=== PATIENT | female | born 1980 | race Caucasian/White ===

== ENCOUNTER 2017-06-18 18:12 | Emergency (ER) | payer OTHER ==
[2017-06-18] MEDS ORDERED: SODIUM CHLORIDE 0.9% 1,000 ML IV STA (18:23)
[2017-06-18] MEDS ORDERED: KETOROLAC 30 MG/ML 1 ML VIAL IVP STA (18:23)
[2017-06-18] MEDS ORDERED: ONDANSETRON 4 MG/2 ML VIAL IVP STA (18:23)
[2017-06-18] MEDS ORDERED: MORPHINE SULFATE 4 MG/ML SYRINGE IV STA (18:23)
--- NOTE | 2017-06-18 18:36 | ED ---
Abdominal Pain HPI - General Chief Complaint: Abdominal Pain Stated Complaint: pelvic pain Time Seen by Provider: 06/18/17 18:19 Source: patient, RN notes reviewed, old records reviewed Mode of arrival: wheelchair Limitations: no limitations - History of Present Illness Initial Comments: this is a 36-year-old female presenting to the emergency Department chief complaint of severe right-sided pelvic pain. Patient reports that he feels like her ovary burst. Patient states that she hasn't having severe pain whenever she is obviously related over the past year however the past 60 she's been having some more frequent pain. 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 She reports that she felt a sudden tearing sensation, and the pain is having her doubled over. Patient states that she's had no urinary symptoms including dysuria or hematuria. Denies any vaginal discharge. She reports that she's had female. Patient reports that she has an IUD, which she needs to be changed in 2019. Patient states that she has had severe nausea due to the pain. She is on multiple pain medications due to poor lumbar spine, she takes Soma, oxycodone, and Neurontin. Patient reports that all these pain medications are not helping with the pain that she has. - Related Data Home Medications Medication Instructions Recorded Confirmed Carisoprodol [Soma] 350 mg PO Q8H 06/18/17 06/18/17 HYDROcodone/APAP 7.5-325MG [Vendor 1 tab PO Q6H PRN 06/18/17 06/18/17 7.5-325] Naproxen 500 mg PO Q12H 06/18/17 06/18/17 PARoxetine [Paxil] 20 mg PO DAILY 06/18/17 06/18/17 Allergies Allergy/AdvReac Type Severity Reaction Status Date / Time No Known Allergies Allergy Verified 06/18/17 18:38 Review of Systems ROS Statement: Those systems with pertinent positive or pertinent negative responses have been documented in the HPI. ROS Other: All systems not noted in ROS Statement are negative. Past Medical History Past Medical History: No Reported History Additional Past Medical History / Comment(s): neck and back pain History of Any Multi-Drug Resistant Organisms: None Reported Past Surgical History: Breast Surgery Past Psychological History: Anxiety Smoking Status: Current every day smoker Past Alcohol Use History: Occasional Past Drug Use History: None Reported General Exam - General Exam Comments Initial Comments: this is a ill-appearing 36-year-old female. Patient appears in significant discomfort. Limitations: no limitations General appearance: alert, in no apparent distress Head exam: Present: atraumatic, normocephalic, normal inspection Eye exam: Present: normal appearance, PERRL, EOMI. Absent: scleral icterus, conjunctival injection, periorbital swelling ENT exam: Present: normal exam, mucous membranes moist Neck exam: Present: normal inspection. Absent: tenderness, meningismus, lymphadenopathy Respiratory exam: Present: normal lung sounds bilaterally. Absent: respiratory distress, wheezes, rales, rhonchi, stridor Cardiovascular Exam: Present: regular rate, normal rhythm, normal heart sounds. Absent: systolic murmur, diastolic murmur, rubs, gallop, clicks GI/Abdominal exam: Present: soft, tenderness (suprapubic and RLQ pain), normal bowel sounds. Absent: distended, guarding, rebound, rigid External exam: Present: normal external exam Speculum exam: Present: vaginal discharge (scant vaginal discharge. ), cervical discharge. Absent: normal speculum exam, vaginal bleeding, foreign body, tissue By manual exam: Present: cervical motion tenderness (patient had some mild cervical motion tenderness.). Absent: normal by manual exam Extremities exam: Present: normal inspection, full ROM, normal capillary refill. Absent: tenderness, pedal edema, joint swelling, calf tenderness Back exam: Present: normal inspection, full ROM Neurological exam: Present: alert, oriented X3, CN II-XII intact Psychiatric exam: Present: normal affect, normal mood Skin exam: Present: warm, dry, intact, normal color. Absent: rash Course Vital Signs 06/18/17 18:18 Temperature 98.9 F Pulse Rate 118 H Respiratory 20 Rate Blood Pressure 156/100 O2 Sat by Pulse 98 Oximetry Medical Decision Making - Medical Decision Making physical 36-year-old female chief complaint of severe right-sided abdominal pain. Patient reports it seems to be lower and pelvic in nature. Patient labwork was reviewed. No significant abnormalities. Negative urinalysis. Transvaginal ultrasound obtained. Evidence of left-sided hemorrhagic ovarian cyst, as well as right-sided ovarian cyst which is a possible endometrioma. This relates to patient's pain. She states that every time when she is ovulating she's been having a severe increased pain throughout her abdomen. Patient is informed of what endometriosis is, and her symptoms are similar to this. Discussed that her acute pain seems to relate she will the ruptured cyst. Patient is alert he on oxycodone, Soma, and naproxen for pain. Discussed that I will not write her for any further pain medication. Patient was given morphine and IV fluids in the emergency department and is reevaluated feeling much better. Patient will be discharged at this time with close follow- up with her [facility]. Also vaginal cultures were obtained, no concern for PID at this time. - Lab Data Result diagrams: 06/18/17 18:45 06/18/17 18:45 Lab Results 06/18/17 06/18/17 06/18/17 Range/Units 18:35 18:35 18:45 WBC (3.8-10.6) k/uL RBC (3.80-5.40) m/uL Hgb (11.4-16.0) gm/dL Hct (34.0-46.0) % MCV (80.0-100.0) fL MCH (25.0-35.0) pg MCHC (31.0-37.0) g/dL RDW (11.5-15.5) % Plt Count (150-450) k/uL Neutrophils % % Lymphocytes % % Monocytes % % Eosinophils % % Basophils % % Neutrophils # (1.3-7.7) k/uL Lymphocytes # (1.0-4.8) k/uL Monocytes # (0-1.0) k/uL Eosinophils # (0-0.7) k/uL Basophils # (0-0.2) k/uL PT (9.0-12.0) sec INR (<1.2) APTT (22.0-30.0) sec Sodium 135 L (137-145) mmol/L Potassium 4.5 (3.5-5.1) mmol/L Chloride 105 (98-107) mmol/L Carbon Dioxide 20 L (22-30) mmol/L Anion Gap 10 mmol/L BUN 16 (7-17) mg/dL Creatinine 0.70 (0.52-1.04) mg/dL Est GFR (MDRD) Af Amer >60 (>60 ml/min/1.73 sqM) Est GFR (MDRD) Non-Af >60 (>60 ml/min/1.73 sqM) Glucose 116 H (74-99) mg/dL Plasma Lactic Acid Tyron (0.7-2.0) mmol/L Calcium 9.7 (8.4-10.2) mg/dL Total Bilirubin 0.4 (0.2-1.3) mg/dL AST 19 (14-36) U/L ALT 29 (9-52) U/L Alkaline Phosphatase 61 (38-126) U/L Total Protein 7.3 (6.3-8.2) g/dL Albumin 4.6 (3.5-5.0) g/dL Amylase 81 (30-110) U/L Lipase 264 (23-300) U/L HCG, Qual Not Detected Urine Color Yellow Urine Appearance Clear (Clear) Urine pH 5.5 (5.0-8.0) Ur Specific [place] 1.020 (1.001-1.035) Urine Protein Trace H (Negative) Urine Glucose (UA) Negative (Negative) Urine Ketones Negative (Negative) Urine Blood Negative (Negative) Urine Nitrite Negative (Negative) Urine Bilirubin Negative (Negative) Urine Urobilinogen <2.0 (<2.0) mg/dL Ur Leukocyte Esterase Negative (Negative) Urine HCG, Qual Not Detected (Not Detectd) Trichomonas Ag (Rapid) (Negative) 06/18/17 06/18/17 06/18/17 Range/Units 18:45 18:45 18:45 WBC 13.5 H (3.8-10.6) k/uL RBC 4.49 (3.80-5.40) m/uL Hgb 14.4 (11.4-16.0) gm/dL Hct 41.7 (34.0-46.0) % MCV 92.9 (80.0-100.0) fL MCH 32.0 (25.0-35.0) pg MCHC 34.5 (31.0-37.0) g/dL RDW 13.6 (11.5-15.5) % Plt Count 311 (150-450) k/uL Neutrophils % 63 % Lymphocytes % 28 % Monocytes % 4 % Eosinophils % 2 % Basophils % 1 % Neutrophils # 8.6 H (1.3-7.7) k/uL Lymphocytes # 3.7 (1.0-4.8) k/uL Monocytes # 0.6 (0-1.0) k/uL Eosinophils # 0.3 (0-0.7) k/uL Basophils # 0.1 (0-0.2) k/uL PT 9.9 (9.0-12.0) sec INR 1.0 (<1.2) APTT 23.1 (22.0-30.0) sec Sodium (137-145) mmol/L Potassium (3.5-5.1) mmol/L Chloride (98-107) mmol/L Carbon Dioxide (22-30) mmol/L Anion Gap mmol/L BUN (7-17) mg/dL Creatinine (0.52-1.04) mg/dL Est GFR (MDRD) Af Amer (>60 ml/min/1.73 sqM) Est GFR (MDRD) Non-Af (>60 ml/min/1.73 sqM) Glucose (74-99) mg/dL Plasma Lactic Acid Tyron 0.9 (0.7-2.0) mmol/L Calcium (8.4-10.2) mg/dL Total Bilirubin (0.2-1.3) mg/dL AST (14-36) U/L ALT (9-52) U/L Alkaline Phosphatase (38-126) U/L Total Protein (6.3-8.2) g/dL Albumin (3.5-5.0) g/dL Amylase (30-110) U/L Lipase (23-300) U/L HCG, Qual Urine Color Urine Appearance (Clear) Urine pH (5.0-8.0) Ur Specific [place] (1.001-1.035) Urine Protein (Negative) Urine Glucose (UA) (Negative) Urine Ketones (Negative) Urine Blood (Negative) Urine Nitrite (Negative) Urine Bilirubin (Negative) Urine Urobilinogen (<2.0) mg/dL Ur Leukocyte Esterase (Negative) Urine HCG, Qual (Not Detectd) Trichomonas Ag (Rapid) (Negative) 06/18/17 Range/Units 19:00 WBC (3.8-10.6) k/uL RBC (3.80-5.40) m/uL Hgb (11.4-16.0) gm/dL Hct (34.0-46.0) % MCV (80.0-100.0) fL MCH (25.0-35.0) pg MCHC (31.0-37.0) g/dL RDW (11.5-15.5) % Plt Count (150-450) k/uL Neutrophils % % Lymphocytes % % Monocytes % % Eosinophils % % Basophils % % Neutrophils # (1.3-7.7) k/uL Lymphocytes # (1.0-4.8) k/uL Monocytes # (0-1.0) k/uL Eosinophils # (0-0.7) k/uL Basophils # (0-0.2) k/uL PT (9.0-12.0) sec INR (<1.2) APTT (22.0-30.0) sec Sodium (137-145) mmol/L Potassium (3.5-5.1) mmol/L Chloride (98-107) mmol/L Carbon Dioxide (22-30) mmol/L Anion Gap mmol/L BUN (7-17) mg/dL Creatinine (0.52-1.04) mg/dL Est GFR (MDRD) Af Amer (>60 ml/min/1.73 sqM) Est GFR (MDRD) Non-Af (>60 ml/min/1.73 sqM) Glucose (74-99) mg/dL Plasma Lactic Acid Tyron (0.7-2.0) mmol/L Calcium (8.4-10.2) mg/dL Total Bilirubin (0.2-1.3) mg/dL AST (14-36) U/L ALT (9-52) U/L Alkaline Phosphatase (38-126) U/L Total Protein (6.3-8.2) g/dL Albumin (3.5-5.0) g/dL Amylase (30-110) U/L Lipase (23-300) U/L HCG, Qual Urine Color Urine Appearance (Clear) Urine pH (5.0-8.0) Ur Specific [place] (1.001-1.035) Urine Protein (Negative) Urine Glucose (UA) (Negative) Urine Ketones (Negative) Urine Blood (Negative) Urine Nitrite (Negative) Urine Bilirubin (Negative) Urine Urobilinogen (<2.0) mg/dL Ur Leukocyte Esterase (Negative) Urine HCG, Qual (Not Detectd) Trichomonas Ag (Rapid) Negative (Negative) - Radiology Data Radiology results: report reviewed Treatment plan 1 cm hemorrhagic left ovarian cyst with small amount of Ovarian fluid. Questionable 2.6 cm ovarian follicle within the right ovary which could relate to an endometrioma the patient's history. No current evidence of ovarian torsion on exam. Appropriately placed IUD. Essentially within the endometrium sparing the fundus and body. Disposition Clinical Impression: Left ovarian cyst, Right ovarian cyst, Endometriosis, Ruptured ovarian cyst Disposition: HOME SELF-CARE Condition: Good Instructions: Endometriosis (ED), Ovarian Cyst (ED) Additional Instructions: Patient advised to follow-up with her [facility]. Return to the emergency department if any alarming signs or symptoms occur. Referrals: Yunior Celaya MD [Primary Care Provider] - 1-2 days Time of Disposition: 20:03
[2017-06-18 18:47] LABS: Appearance,Urine Clear (Clear); Bilirubin,Urine Negative (Negative); Glucose,Urine (UA) Negative (Negative); Ketones,Urine Negative (Negative); Leukocyte Esterase,Urine Negative (Negative); Nitrite,Urine Negative (Negative); PH, Urine 5.5 (5.0-8.0); Protein,Urine Trace (Negative); UA Billing (MACRO vs. MICRO) CHEM; Urobilinogen,Urine <2.0 mg/dL (<2.0)
[2017-06-18 19:05] LABS: Basophils # (A) 0.1 k/uL (0-0.2); Basophils % (A) 1 %; CH 31.5; CHCM 34.1; Eosinophils # (A) 0.3 k/uL (0-0.7); Eosinophils % (A) 2 %; HCT 41.7 % (34.0-46.0); HDW 2.17; HGB 14.4 gm/dL (11.4-16.0); Luc # (Auto) 0.31; Luc % (Auto) 2; Lymphocytes # (A) 3.7 k/uL (1.0-4.8); Lymphocytes % (A) 28 %; MCHC 34.5 g/dL (31.0-37.0); MCV 92.9 fL (80.0-100.0); Mean Platelet Volume 7.1; Monocytes # (A) 0.6 k/uL (0-1.0); Monocytes % (A) 4 %; Neutrophils # (A) 8.6 k/uL (1.3-7.7); Neutrophils % (A) 63 %; RBC 4.49 m/uL (3.80-5.40); RDW 13.6 % (11.5-15.5); WBC 13.5 k/uL (3.8-10.6); WBC (Perox) 13.62
[2017-06-18 19:13] LABS: ALT 29 U/L (9-52); AST 19 U/L (14-36); Alkaline Phosphatase 61 U/L (38-126); Amylase 81 U/L (30-110); Anion Gap 10 mmol/L; Blood Urea Nitrogen 16 mg/dL (7-17); Calcium 9.7 mg/dL (8.4-10.2); Carbon Dioxide 20 mmol/L (22-30); Chloride 105 mmol/L (98-107); Glucose 116 mg/dL (74-99); Non-African American GFR(MDRD) >60 (>60 ml/min/1.73 sqM); Potassium 4.5 mmol/L (3.5-5.1); Sodium 135 mmol/L (137-145); Total Bilirubin 0.4 mg/dL (0.2-1.3); Total Protein 7.3 g/dL (6.3-8.2)
[2017-06-18 19:29] LABS: HCG,Qualitative Serum Not Detected
[2017-06-18 19:37] LABS: Partial Thromboplastin Time 23.1 sec (22.0-30.0); Prothrombin Time 9.9 sec (9.0-12.0)
--- NOTE | 2017-06-18 19:40 | US ---
EXAMINATION TYPE: US transvaginal DATE OF EXAM: 06/18/2017 COMPARISON: NONE CLINICAL HISTORY: Pain. Right pelvic pain, endometriosis, severe pain with ovulation, IUD placement TECHNIQUE: Transvaginal (TV) Date of LMP: 2 weeks ago EXAM MEASUREMENTS: Uterus: 8.3 x 4.8 x 5.9 cm Endometrial Stripe: 0.9 cm Right Ovary: 3.5 x 2.3 x 1.7 cm Left Ovary: 4.8 x 2.8 x 3.2 cm 1. Uterus: Anteverted 2. Endometrium: IUD visualized within body/fundus 3. Right Ovary: possible isoechoic area = 2.6 x 1.5 x 1.3cm 4. Left Ovary: complex cystic area = 3.1 x 2.2 x 2.8cm Spectral, color and waveform doppler imaging shows good arterial and venous flow within the ovaries ; there is no evidence for ovarian torsion. 5. Bilateral Adnexa: small amount of free fluid left adnexa adjacent to left ovary 6. Posterior cul-de-sac: appears wnl IMPRESSION: 1. 3.1 cm hemorrhagic left ovarian cyst with small amount of paraovarian fluid. 2. Questionable 2.6 cm isoechoic follicle within the right ovary that could relate to endometrioma in the patient's history. 3. No current evidence of ovarian torsion during the examination. 4. Appropriately placed intrauterine device, centrally within the endometrium spanning the body and f undus.
[2017-06-18] MEDS ORDERED: HYDROmorphone 1 MG/ML 1 ML SYRINGE IVP STA (20:01)
[2017-06-18 20:33] VITALS: BP 121/69; PULSE 81; RESP 18; TEMP 98.2
== END 2017-06-18 20:33 | disposition home or self-care (01) ==
LOC: EC 18:12
DX: N83.202 Unspecified ovarian cyst, left side (principal); N83.201 Unspecified ovarian cyst, right side; N80.1 Endometriosis of ovary; R11.0 Nausea; F41.9 Anxiety disorder, unspecified; F17.200 Nicotine dependence, unspecified, uncomplicated; Z79.1 Long term (current) use of non-steroidal anti-inflammatories (NSAID); Z79.899 Other long term (current) drug therapy; Z97.5 Presence of (intrauterine) contraceptive device; Z87.39 Personal history of other diseases of the musculoskeletal system and connective tissue
CPT/HCPCS: 36415; 80053; 87591; 87491; 82150; 83605; 83690; 85025; 85610; 85730; 81003; 81025; 84703; 87040; 87808; 87070; 93975; 76830; 99284; 96374; 96375 ×3; 96361 ×2; J2270; J2405; J1885; J1170; 87205

== ENCOUNTER 2018-10-28 14:28 | Emergency (ER) | payer OTHER ==
[2018-10-28 14:38] VITALS: BP 159/87; RESP 20; TEMP 98.1
[2018-10-28] MEDS ORDERED: ACETAMINOPHEN TAB 325 MG TAB PO STA (15:07)
--- NOTE | 2018-10-28 15:27 | ED ---
General Adult HPI - General Chief complaint: Neck Pain/Injury Stated complaint: Arm pain Source: patient, RN notes reviewed, old records reviewed Mode of arrival: ambulatory Limitations: no limitations - History of Present Illness Initial comments: 38-year-old female patient with past medical history of chronic back pain, chronic cervical spine pain, endometriosis presents to ED with 3 weeks of cervical spinal pain. Patient has had this pain chronically - reportedly over 20 years, reports that she slept on the ground approximately 3 weeks ago causing exacerbation this pain. Patient reports that she has been seen 2 prior times was issue. Patient reports that she seen by her primary care physician and [facility]. Patient states that they did not find any acute pathology and she has an appointment with orthospine in approximately 3 weeks. Patient currently treats her chronic cervical thoracic and lumbar back pain with hydrocodone, gabapentin, Somathis medication as prescribed by her primary care provider. Patient denies any recent falls or trauma. Patient denies any fever/ chills, nausea vomiting diarrhea, chest pain, shortness of breath, abdominal pain, IV drug use. Pt states that she is presenting control for symptom control , does not want take home medications because of her previously rx analgesics. Systemic: Pt denies fatigue, fever/chills, rash. Pt denies weakness, night sweats, weight loss. Neuro: Pt denies headache, visual disturbances, syncope or pre-syncope. HEENT: Pt denies ocular discharge or irritation, otalgia, rhinorrhea, pharyngitis or notable lymphadenopathy. Cardiopulmonary: Pt denies chest pain, SOB, heart palpitations, dyspnea on exertion. Abdominal/GI: Pt denies abdominal pain, n/v/d. : Pt denies dysuria, burning w/ urination, frequency/urgency. Denies new onset urinary or bowel incontinence. MSK: Pt denies myalgia, loss of strength or function in extremities. Neuro: Pt denies new onset weakness, paresthesias. - Related Data Home Medications Medication Instructions Recorded Confirmed Carisoprodol [Soma] 350 mg PO Q8H 06/18/17 06/18/17 HYDROcodone/APAP 7.5-325MG [[place] 1 tab PO Q6H PRN 06/18/17 06/18/17 7.5-325] Naproxen 500 mg PO Q12H 06/18/17 06/18/17 PARoxetine [Paxil] 20 mg PO DAILY 06/18/17 06/18/17 Allergies Allergy/AdvReac Type Severity Reaction Status Date / Time No Known Allergies Allergy Verified 10/28/18 14:38 Review of Systems ROS Statement: Those systems with pertinent positive or pertinent negative responses have been documented in the HPI. ROS Other: All systems not noted in ROS Statement are negative. Past Medical History Past Medical History: No Reported History Additional Past Medical History / Comment(s): neck and back pain History of Any Multi-Drug Resistant Organisms: None Reported Past Surgical History: Breast Surgery Past Psychological History: Anxiety Smoking Status: Current every day smoker Past Alcohol Use History: Occasional Past Drug Use History: None Reported General Exam - General Exam Comments Initial Comments: Constitutional: NAD, AOX3, Pt has pleasant affect. HEENT: NC/AT, trachea midline, neck supple, no lymphadenopathy. Posterior pharynx non erythematous, without exudates. External ears appear normal, without discharge. Mucous membranes moist. Eyes PERRLA, EOM intact. There is no scleral icterus. No pallor noted. Cardiopulmonary: RRR, no murmurs, rubs or gallops, no JVD noted. Lungs CTAB in anterior and posterior garner. No peripheral edema. Abdominal exam: Abdomen soft and non-distended. Abdomen non-tender to palpation in all 4 quadrants. Bowel sounds active in LLQ. No hepatosplenomegaly. No ecchymosis Neuro: CN II-XII intact. No nuchal rigidity. Kernigs and Brudzinski's negative. MSK: Pt has mild amount of midline thoracic tenderness. No midline lumbar or cervical tenderness. No para cervical, thoracic or lumbar tenderness. Quadriceps and psoas strength 5/5 bilaterally. Sensation intact. Triceps and biceps stregnth 5/5 bilaterally. Sensation inact. No posterior calf tenderness bilaterally, homans sign negative bilaterally. Posterior tibialis and radial pulse +2 bilaterally. Sensation intact in upper and lower extremities. Full active ROM in upper and lower extremities, 5/5 stregnth. Limitations: no limitations Course Vital Signs 10/28/18 10/28/18 14:35 17:02 Temperature 98.1 F Pulse Rate 104 H 71 Respiratory 20 Rate Blood Pressure 159/87 O2 Sat by Pulse 98 Oximetry Medical Decision Making - Medical Decision Making 38-year-old female patient with past medical history of chronic back pain, chronic cervical spine pain, endometriosis presents to ED with 3 weeks of cervical spinal pain. Patient has had this pain chronically, reports that she slept on the ground approximately 3 weeks ago causing exacerbation this pain. Patient denies any recent falls or trauma. Physical exam displayed: CN II-XII intact. No nuchal rigidity. Kernigs and Brudzinski's negative. Pt has mild amount of midline thoracic tenderness. No midline lumbar or cervical tenderness. No para cervical, thoracic or lumbar tenderness. Quadriceps and psoas strength 5/5 bilaterally. Sensation intact. Triceps and biceps stregnth 5/ 5 bilaterally. Sensation inact. Plain film of cervical spine displayed mild spondylolysis at C5-C6. No significant change from comparison exam in 2016. Plain film of thoracic spine displayed normal thoracic spine. EKG displayed normal sinus rhythm, no concerns for acute ischemia or arrhythmia. Patient improved with Tylenol and Toradol. Patient to follow up with primary care provider in 1-2 days. Patient to return to ED if new signs symptoms develop or condition worsens. Patient to continue with established orthospine follow-up scheduled in 3 weeks. Patient also provided a separate orthopedic consult to use as needed. Case discussed in depth with Dr. Chase. - Lab Data Lab Results 10/28/18 10/28/18 Range/Units 15:15 15:15 Urine Color Yellow Urine Appearance Clear (Clear) Urine pH 6.5 (5.0-8.0) Ur Specific [place] 1.008 (1.001-1.035) Urine Protein Negative (Negative) Urine Glucose (UA) Negative (Negative) Urine Ketones Negative (Negative) Urine Blood Negative (Negative) Urine Nitrite Negative (Negative) Urine Bilirubin Negative (Negative) Urine Urobilinogen <2.0 (<2.0) mg/dL Ur Leukocyte Esterase Negative (Negative) Urine HCG, Qual Not Detected (Not Detectd) - EKG Data -: EKG Interpreted by Me EKG Comments: Ventricular rate 71, ND interval 142, QRS 90, QT/QTC 370/408. Normal sinus rhythm, normal EKG. Disposition Clinical Impression: Back pain, chronic, Cervicalgia Disposition: HOME SELF-CARE Condition: Fair Instructions: Cervical Strain (ED) Additional Instructions: Patient to adhere to previously discussed treatment plan and will take medication(s) as directed. Patient to follow up with PCP in 1-2 days. Patient to return to ED if symptoms do not improve. Is patient prescribed a controlled substance at d/c from ED?: No Referrals: Yunior Celaya MD [Primary Care Provider] - 1-2 days Syed Jacob MD [STAFF PHYSICIAN] - 1-2 days Time of Disposition: 17:41
[2018-10-28 15:37] LABS: Appearance,Urine Clear (Clear); Bilirubin,Urine Negative (Negative); Blood,Urine Negative (Negative); Color,Urine Yellow; Glucose,Urine (UA) Negative (Negative); Ketones,Urine Negative (Negative); Leukocyte Esterase,Urine Negative (Negative); Nitrite,Urine Negative (Negative); PH, Urine 6.5 (5.0-8.0); Protein,Urine Negative (Negative); Specific Gravity,Urine 1.008 (1.001-1.035); Urobilinogen,Urine <2.0 mg/dL (<2.0)
--- NOTE | 2018-10-28 15:55 | XR ---
EXAMINATION TYPE: XR cervical spine comp DATE OF EXAM: 10/28/2018 COMPARISON: 12/13/2015 HISTORY: Neck pain TECHNIQUE: 5 views FINDINGS: There is mild straightening of the vertebra. There is narrowing at C5-6 disc space with mil d spurring. Posterior elements are intact. Atlantoaxial facet joint is normal. There are no cervical ribs. Neural foramina appear normal. IMPRESSION: Mild spondylosis at C5-6. No fracture. No significant change.
--- NOTE | 2018-10-28 15:56 | XR ---
EXAMINATION TYPE: XR thoracic spine complete DATE OF EXAM: 10/28/2018 COMPARISON: NONE HISTORY: Back pain TECHNIQUE: 3 views FINDINGS: Thoracic vertebra have normal spacing and alignment. Posterior elements are intact. There i s no paraspinal mass. There is no compression fracture. IMPRESSION: Normal thoracic spine.
[2018-10-28] MEDS ORDERED: KETOROLAC 60 MG/2 ML VIAL IM STA (16:05)
[2018-10-28 17:03] VITALS: PULSE 71
== END 2018-10-28 17:03 | disposition home or self-care (01) ==
LOC: EC 14:28
DX: M54.2 Cervicalgia (principal); G89.29 Other chronic pain; M54.5 Low back pain; M47.812 Spondylosis without myelopathy or radiculopathy, cervical region; F41.9 Anxiety disorder, unspecified; F17.200 Nicotine dependence, unspecified, uncomplicated; Z79.899 Other long term (current) drug therapy
CPT/HCPCS: 93005; 81003; 81025; 72072; 72050; 99284; 96372; J1885

== ENCOUNTER 2018-11-20 09:04 | Day surgery (SDC) | payer OTHER ==
[2018-11-16 08:48] VITALS: BMI 22.9
[~2018-11-20 09:04] MED LIST: SODIUM CHLORIDE 0.9% 1,000 ML IV SCH
[2018-11-20 09:36] VITALS: RESP 16; TEMP 98.1
[2018-11-20] MEDS ORDERED: SODIUM CHLORIDE 0.9% 500 ML 500 ML IV ONE (09:45)
[2018-11-20 10:48] VITALS: BP 137/79; PULSE 99
== END 2018-11-20 10:47 | disposition home or self-care (01) ==
LOC: CATHEP 09:04
PROVIDERS: ATTEND Internal Medicine Clinical Cardiac Electrophysiology
DX: R55 Syncope and collapse (principal)
CPT/HCPCS: 81025; 93660

== ENCOUNTER → 2018-12-10 | Outpatient (CLI) | payer OTHER ==
--- NOTE | 2018-12-10 16:11 | CT ---
EXAMINATION TYPE: CT angio neck DATE OF EXAM: 12/10/2018 HISTORY: Lt arm numbness, heaviness COMPARISON: None CT DLP: 201.4 mGycm. Automated Exposure Control for Dose Reduction was Utilized. TECHNIQUE: CTA scan of the neck is performed with IV Contrast, patient injected with 65 mL of Isovue 370, axial images are obtained, coronal and sagittal reformatted images are reviewed. Three-D recons tructed images are created on an independent workstation and reviewed. FINDINGS: Carotid/Vascular Structures: Carotid arteries bifurcate into internal and external vessels. No signif icant stenosis of the carotid bifurcation is evident. Atheromatous plaquing is at the carotid bulb an d internal carotid artery origin causing mild left. Vertebral arteries are codominant. IMPRESSION: 1. No significant flow-limiting stenosis. Atheromatous plaquing bilateral carotid bifurcations have l ess than 50% narrowing.
== END ==
LOC: RADCTMAIN 07:01
PROVIDERS: ATTEND Psychiatry & Neurology Neurology
DX: R93.89 Abnormal findings on diagnostic imaging of other specified body structures (principal)
CPT/HCPCS: 70498; Q9967

== ENCOUNTER 2019-03-11 21:32 | Emergency (ER) | payer OTHER ==
[2019-03-11 21:44] VITALS: BP 128/79; PULSE 94; RESP 18; TEMP 98.3
--- NOTE | 2019-03-11 23:19 | ED ---
General Adult HPI - General Source: patient Mode of arrival: ambulatory Limitations: no limitations <Timmy Rivera - Last Filed: 03/11/19 23:03> <Valerie Banuelos - Last Filed: 03/12/19 22:28> - General Chief complaint: Nausea/Vomiting/Diarrhea Stated complaint: Nausea, Light headed Time Seen by Provider: 03/11/19 22:09 - History of Present Illness Initial comments: Patient is a 38-year-old female presenting to emergency Department with nausea. Patient reports in the past few days she feels nauseous and "sick overall". Patient reports periods of dizziness and nausea intermittently for few years prior for which she has undergone extensive testing by a neurologist. 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 Patient reports over the past 2 days the nausea has gotten more severe and she has to "throw up to feel better" otherwise has no problems keeping fluids and solid food down. Patient reports she has an appointment with her neurologist tomorrow. Patient reports she was supposed to have an appointment with a master welder today but she couldn't make it. Patient reports that she does not want to be here anymore and wants to leave. (Timmy Rivera) - Related Data Home Medications Medication Instructions Recorded Confirmed Carisoprodol [Soma] 350 mg PO TID 06/18/17 03/11/19 HYDROcodone/APAP 7.5-325MG [[place] 1 tab PO Q6H PRN 06/18/17 03/11/19 7.5-325] Naproxen 500 mg PO Q12H 06/18/17 03/11/19 Cymbalta (Unknown Dose) 1 tab PO DAILY 11/16/18 03/11/19 Gabapentin [Neurontin] 400 mg PO TID 03/11/19 03/11/19 Allergies Allergy/AdvReac Type Severity Reaction Status Date / Time No Known Allergies Allergy Verified 03/11/19 22:29 Review of Systems ROS Other: All systems not noted in ROS Statement are negative. <Timmy Rivera - Last Filed: 03/11/19 23:03> ROS Other: All systems not noted in ROS Statement are negative. <Valerie Banuelos - Last Filed: 03/12/19 22:28> ROS Statement: Those systems with pertinent positive or pertinent negative responses have been documented in the HPI. Past Medical History Past Medical History: No Reported History Additional Past Medical History / Comment(s): Current neck and back pain. History of Any Multi-Drug Resistant Organisms: None Reported Past Surgical History: Breast Surgery Past Anesthesia/Blood Transfusion Reactions: No Reported Reaction Past Psychological History: Anxiety Smoking Status: Current every day smoker Past Alcohol Use History: None Reported Past Drug Use History: None Reported - Past Family History Mother Family Medical History: No Reported History <Timmy Rivera - Last Filed: 03/11/19 23:03> General Exam Limitations: no limitations General appearance: alert, in no apparent distress Head exam: Present: atraumatic, normocephalic, normal inspection Eye exam: Present: normal appearance, PERRL, EOMI Pupils: Present: normal accommodation ENT exam: Present: normal exam, normal oropharynx, mucous membranes moist, TM's normal bilaterally Neck exam: Present: normal inspection Respiratory exam: Present: normal lung sounds bilaterally Cardiovascular Exam: Present: regular rate, normal rhythm, normal heart sounds Extremities exam: Present: normal inspection, normal capillary refill, other (+2 dorsalis pedis and posterior tibialis. Patient neurovascularly intact.) Back exam: Present: normal inspection. Absent: CVA tenderness (R), CVA tenderness (L) Neurological exam: Present: alert, oriented X3 Psychiatric exam: Present: normal affect, normal mood Skin exam: Present: warm, intact, normal color <Timmy Rivera - Last Filed: 03/11/19 23:03> - General Exam Comments Initial Comments: Neuro exam unremarkable. (Timmy Rivera) Course Vital Signs 03/11/19 21:40 Temperature 98.3 F Pulse Rate 94 Respiratory 18 Rate Blood Pressure 128/79 O2 Sat by Pulse 100 Oximetry Medical Decision Making <Timmy Rivera - Last Filed: 03/11/19 23:03> <Valerie Banuelos - Last Filed: 03/12/19 22:28> - Medical Decision Making Patient is a 38-year-old female presenting to emergency Department for nausea. After performing a physical exam the patient reported she does not want to be here anymore and wants to leave. Patient declined an EKG, additional laboratory or imaging workup. Patient decided to leave AGAINST MEDICAL ADVICE. Patient left without discharge paperwork. Case discussed with physician. (Timmy Dallas i) I was made aware of the patient's case after the patient had walked out of the emergency department. Patient was seen and evaluated and then subsequently eloped from the department. (Valerie Banuelos) Disposition Is patient prescribed a controlled substance at d/c from ED?: No Time of Disposition: 23:21 <Timmy Rivera - Last Filed: 03/11/19 23:03> <Valerie Banuelos - Last Filed: 03/12/19 22:28> Clinical Impression: Nausea Disposition: HOME SELF-CARE Condition: Stable Additional Instructions: Please follow with primary care. Please return to emergency department is symptoms worsen. Referrals: Yunior Celaya MD [Primary Care Provider] - 1-2 days
== END 2019-03-11 23:15 | disposition home or self-care (01) ==
LOC: EC 21:32
DX: R11.0 Nausea (principal); R42 Dizziness and giddiness; F41.9 Anxiety disorder, unspecified; F17.200 Nicotine dependence, unspecified, uncomplicated; Z53.29 Procedure and treatment not carried out because of patient's decision for other reasons; Z79.1 Long term (current) use of non-steroidal anti-inflammatories (NSAID); Z79.899 Other long term (current) drug therapy
CPT/HCPCS: 99283

== ENCOUNTER 2019-04-08 21:33 | Emergency (ER) | payer OTHER ==
[2019-04-08 21:56] VITALS: BP 131/80; PULSE 84; RESP 18; TEMP 98.9
--- NOTE | 2019-04-08 22:13 | ED ---
General Adult HPI - General Chief complaint: Wound/Laceration Stated complaint: Hand Lac Time Seen by Provider: 04/08/19 22:00 Source: patient, RN notes reviewed Mode of arrival: ambulatory Limitations: no limitations - History of Present Illness Initial comments: 38 old female presents to the emergency department for a chief complaint of laceration to the left hand. Patient states she was trying to cut a frozen banana when her knife slipped and she cut her hand. Denies any difficulty moving any fingers. States tetanus is up-to-date. Denies any other lacerations or injuries.Patient has no other complaints at this time including shortness of breath, chest pain, abdominal pain, nausea or vomiting, headache, or visual changes. - Related Data Home Medications Medication Instructions Recorded Confirmed Carisoprodol [Soma] 350 mg PO TID 06/18/17 03/11/19 HYDROcodone/APAP 7.5-325MG [[place] 1 tab PO Q6H PRN 06/18/17 03/11/19 7.5-325] Naproxen 500 mg PO Q12H 06/18/17 03/11/19 Cymbalta (Unknown Dose) 1 tab PO DAILY 11/16/18 03/11/19 Gabapentin [Neurontin] 400 mg PO TID 03/11/19 03/11/19 Allergies Allergy/AdvReac Type Severity Reaction Status Date / Time No Known Allergies Allergy Verified 04/08/19 21:56 Review of Systems ROS Statement: Those systems with pertinent positive or pertinent negative responses have been documented in the HPI. ROS Other: All systems not noted in ROS Statement are negative. Past Medical History Past Medical History: No Reported History Additional Past Medical History / Comment(s): Current neck and back pain. History of Any Multi-Drug Resistant Organisms: None Reported Past Surgical History: Breast Surgery Past Anesthesia/Blood Transfusion Reactions: No Reported Reaction Past Psychological History: Anxiety Smoking Status: Current every day smoker Past Alcohol Use History: None Reported Past Drug Use History: None Reported - Past Family History Mother Family Medical History: No Reported History General Exam Limitations: no limitations General appearance: alert, in no apparent distress Head exam: Present: atraumatic, normocephalic, normal inspection Eye exam: Present: normal appearance, PERRL, EOMI. Absent: scleral icterus, conjunctival injection, periorbital swelling ENT exam: Present: normal exam, mucous membranes moist Neck exam: Present: normal inspection, full ROM. Absent: tenderness, meningismus, lymphadenopathy Respiratory exam: Present: normal lung sounds bilaterally. Absent: respiratory distress, wheezes, rales, rhonchi, stridor Cardiovascular Exam: Present: regular rate, normal rhythm, normal heart sounds. Absent: systolic murmur, diastolic murmur, rubs, gallop, clicks Extremities exam: Present: full ROM (Full range of motion of all digits of the left hand), normal capillary refill (Capillary refill less than 2 seconds, DP pulse 2+), other (Patient has a 2 cm laceration noted to the finger space between the first and second digits of the left hand. No evidence of foreign bodies. No evidence of deep structure injury.). Absent: tenderness, pedal edema, joint swelling Neurological exam: Present: alert, oriented X3, CN II-XII intact Psychiatric exam: Present: normal affect, normal mood Course Vital Signs 04/08/19 21:53 Temperature 98.9 F Pulse Rate 84 Respiratory 18 Rate Blood Pressure 131/80 O2 Sat by Pulse 99 Oximetry Procedures - Laceration Laceration #1 Consent Obtained: verbal consent Indication: laceration Site: hand Size (cm): 2 Description: linear Depth: simple, single layer Anesthetic Used: lidocaine 1% Anesthesia Technique: local infiltration Amount (mls): 10 Pre-repair: wound explored, irrigated extensively Type of Sutures: nylon Size of Sutures: 5-0 Number of Sutures: 3 Technique: simple, interrupted Patient Tolerated Procedure: well, no complications Medical Decision Making - Medical Decision Making 38-year-old female presents to the emergency department for a chief complaint of left hand lac x 1 hour. Patient was trying to cut a frozen banana when this happened. States that the knife slipped and she cut her hand between the first and second digits. On exam there is a 1 cm laceration noted in the finger web space of the first and second digits. Neurovascular status intact. Full range of motion of all digits. No evidence of foreign body or deep structure injury. Wound was cleaned thoroughly after being soaked with sterile water. It was then flushed with saline pressure irrigation. Attempted to anesthetize wound with 5 mL of lidocaine the patient still did have pain so another 5 mL was administered which successfully locally anesthetized patient. Wound was secured with 3 simple sutures. Discussed return parameters including those for infection. Discussed returning in 7-10 days for suture removal. All questions answered. Disposition Clinical Impression: Laceration Disposition: HOME SELF-CARE Condition: Good Instructions (If sedation given, give patient instructions): Care For Your Stitches (ED), Laceration (ED) Additional Instructions: Please monitor for signs infection such as spreading or streaking redness, drainage, or fever and return if these occur. Follow-up with primary care in 1- 2 days for a wound recheck. Return here in 7-10 days to have sutures removed. Is patient prescribed a controlled substance at d/c from ED?: No Referrals: Yunior Celaya MD [Primary Care Provider] - 1-2 days Time of Disposition: 22:57
[2019-04-08] MEDS ORDERED: LIDOCAINE 1% INJ 10MG/ML (20 ML MDV) SQ ONE (22:24)
== END 2019-04-08 23:02 | disposition home or self-care (01) ==
LOC: EC 21:33
DX: S61.412A Laceration without foreign body of left hand, initial encounter (principal); M54.2 Cervicalgia; M54.9 Dorsalgia, unspecified; F41.9 Anxiety disorder, unspecified; F17.200 Nicotine dependence, unspecified, uncomplicated; Z79.1 Long term (current) use of non-steroidal anti-inflammatories (NSAID); Z79.899 Other long term (current) drug therapy; W26.0XXA Contact with knife, initial encounter; Y93.89 Activity, other specified
CPT/HCPCS: 99282; 12001; J2001

== ENCOUNTER 2019-09-17 22:37 | Emergency (ER) | payer OTHER ==
[2019-09-17 22:44] VITALS: BP 135/80; PULSE 98; RESP 20; TEMP 98.2
[2019-09-17] MEDS ORDERED: LIDOCAINE 1% INJ 10MG/ML (20 ML MDV) SQ STA (23:00)
--- NOTE | 2019-09-17 23:17 | CT ---
EXAMINATION TYPE: CT brain wo con DATE OF EXAM: 09/17/2019 COMPARISON: None HISTORY: Patient presents with headache. CT DLP: 1048.4 mGycm. Automated Exposure Control for Dose Reduction was Utilized. TECHNIQUE: CT scan of the head is performed without contrast. FINDINGS: Ventricles and sulci appear normal. There is no mass effect nor midline shift. There is no sign of intracranial hemorrhage. The calvarium is intact. IMPRESSION: Negative head CT scan.
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
== END 2019-09-17 23:38 | disposition home or self-care (01) ==
LOC: EC 22:37
DX: S01.112A Laceration without foreign body of left eyelid and periocular area, initial encounter (principal); M54.2 Cervicalgia; M54.9 Dorsalgia, unspecified; F41.9 Anxiety disorder, unspecified; F17.200 Nicotine dependence, unspecified, uncomplicated; Z79.1 Long term (current) use of non-steroidal anti-inflammatories (NSAID); Z79.899 Other long term (current) drug therapy; V67.5XXA Driver of heavy transport vehicle injured in collision with fixed or stationary object in traffic accident, initial encounter; Y93.89 Activity, other specified; Y92.410 Unspecified street and highway as the place of occurrence of the external cause; Y99.0 Civilian activity done for income or pay
CPT/HCPCS: 70450; 99284; 12011; J2001